=== PATIENT | male | born 1990 | race Caucasian/White ===

== ENCOUNTER 2025-04-26 16:13 | Emergency (ER) | payer BC ==
[~2025-04-26] VITALS: Ht 165.1 cm; Wt 75.7 kg
[2025-04-26 16:33] LABS: BASOPHILS % (AUTO) 0.5 % (0.0-2.0); EOSINOPHILS # (AUTO) 0.1 K/uL (0.0-0.7); EOSINOPHILS % (AUTO) 0.8 % (0.0-7.0); HEMATOCRIT 48.3 % (36.7-47.1); LYMPHOCYTES # (AUTO) 1.4 K/uL (0.8-4.8); LYMPHOCYTES % (AUTO) 19.8 % (20.5-51.5); MEAN CORPUSCULAR HEMOGLOBIN 29.5 uug (23.8-33.4); MEAN CORPUSCULAR HGB CONC 35 g/dL (32.5-36.3); MEAN CORPUSCULAR VOLUME 83.9 fL (73.0-96.2); MONOCYTES # (AUTO) 0.6 K/uL (0.1-1.30); MONOCYTES % (AUTO) 8.5 % (0.0-11.0); NEUTROPHILS # (AUTO) 4.9 K/uL (1.8-8.9); NEUTROPHILS % (AUTO) 70.4 % (38.5-71.5); PLATELET COUNT (AUTO) 216 K/uL (152-348); RED BLOOD CELL COUNT(AUTO) 5.75 MIL/uL (4.06-5.63); RED CELL DISTRIBUTION WIDTH 13.8 % (12.1-16.2); WHITE BLOOD COUNT (AUTO) 6.9 K/uL (3.6-10.2)
[2025-04-26 16:38] LABS: DIFFERENTIAL COMMENT 1
[2025-04-26 16:40] LABS: CALCIUM 9.9 mg/dL (8.5-10.1); CARBON DIOXIDE 25 mmol/L (21-32); CHLORIDE 98 mmol/L (98-107); CREATININE 0.8 mg/dL (0.6-1.3); GLUCOSE 111 mg/dL (74-106); POTASSIUM 3.6 mmol/L (3.5-5.1); SODIUM SERUM 139 mmol/L (136-145); UREA NITROGEN, BLOOD 16 mg/dL (7-18)
[2025-04-26 16:42] LABS: AMMONIA < 10 umol/L (11-32)
[2025-04-26 16:45] LABS: ETHANOL < 3 MG/DL (0-10)
[2025-04-26 16:46] LABS: ACETAMINOPHEN < 2.0 ug/mL (10-30); ALANINE AMINOTRANSFERASE 24 U/L (16-63); ALBUMIN 4.1 g/dL (3.4-5.0); ALKALINE PHOSPHATASE 100 U/L (50-136); ASPARTATE AMINOTRANSFERASE 21 U/L (15-37); BILIRUBIN,DIRECT 0.2 mg/dL (0.0-0.2); BILIRUBIN,TOTAL 0.6 mg/dL (0.2-1.0); TOTAL PROTEIN, SERUM 8.5 g/dL (6.4-8.2)
[2025-04-26] MEDS ORDERED: OLAN2.5T3 PO (16:52)
[2025-04-26 17:13] LABS: THYROID STIMULATING HORMONE 2.582 mIU/mL (0.358-3.740)
[2025-04-26 18:29] LABS: *BILIRUBIN,URIN 2+ (NEGATIVE); *BLOOD, URINE NEGATIVE (NEGATIVE); *CLARITY,URINE CLEAR (CLEAR); *KETONES,URINE 4+ (NEGATIVE); *PROTEIN,URINE 2+ (NEGATIVE); LEUKOCYTE ESTERASE ,URINE NEGATIVE (NEGATIVE); NITRITE, URINE NEGATIVE (NEGATIVE); UGLUCOSE NEGATIVE (NEGATIVE)
[2025-04-26 18:35] LABS: *COLOR,URINE DARK YELLOW (YELLOW)
[2025-04-26] MEDS ORDERED: diphenhydrAMINE 50 MG/1 ML VIAL ONE (18:36)
[2025-04-26] MEDS ORDERED: HALOPERIDOL LACTATE 5 MG/1 ML VIAL ONE (18:36)
[2025-04-26] MEDS ORDERED: LORAZEPAM 2 MG/1 ML VIAL ONE (18:37)
[2025-04-26 18:40] LABS: *AMPHETAMINE, URINE NEGATIVE (NEGATIVE); *BARBITURATE, URINE NEGATIVE (NEGATIVE); *BENZODIAZEPINE, URINE NEGATIVE (NEGATIVE); *CANNABINOID, URINE NEGATIVE (NEGATIVE); *COCCAINE, URINE NEGATIVE (NEGATIVE); *OPIATE, URINE NEGATIVE (NEGATIVE); *PHENCYCLIDINE SCREEN,URINE NEGATIVE (NEGATIVE); FENTANYL, URINE NEGATIVE (NEGATIVE)
[2025-04-26 18:43] LABS: BACTERIA,URINE NONE SEEN /HPF (NONE SEEN); RBC,URINE NONE SEEN /HPF (0-3); SQUAMOUS EPITHELIAL CELL,UR FEW /HPF (NONE SEEN); WBC,URINE 0-3 /HPF (0-3)
[2025-04-26 18:44] LABS: MUCUS,URINE MODERATE /LPF (0-FEW)
[2025-04-26] MEDS: HALOPERIDOL LACTATE 5 MG/1 ML VIAL IM ONE (18:45)
[2025-04-26] MEDS: diphenhydrAMINE 50 MG/1 ML VIAL IM ONE (18:45)
[2025-04-26] MEDS: LORAZEPAM 2 MG/1 ML VIAL IM ONE (18:45)
[2025-04-27] MEDS ORDERED: LORAZEPAM 2 MG/1 ML VIAL ONE (13:24)
[2025-04-27] MEDS: LORAZEPAM 2 MG/1 ML VIAL IM ONE (13:32)
[2025-04-27 16:21] VITALS: O2SAT 96
[2025-04-27] MEDS ORDERED: MIDAZOLAM HCL 2 MG/2 ML VIAL ONE (16:42)
[2025-04-27] MEDS: MIDAZOLAM HCL 2 MG/2 ML VIAL IM ONE (16:44)
== END 2025-04-27 16:57 ==
LOC: ER 16:13
DX: F20.9 Schizophrenia, unspecified (principal); F31.9 Bipolar disorder, unspecified; R45.1 Restlessness and agitation; R07.9 Chest pain, unspecified; Z20.822 Contact with and (suspected) exposure to COVID-19
CPT/HCPCS: 80076; 80048; 81001; 82140; 84443; 85025; 85730; 87426; 84484; 36415; 93005; 99291; 96372 ×2; 80299; 80320; 80307; J1200; J1630; J2060 ×2; J2250; A4606; A4663; G0480